=== PATIENT | male | born 1975 | race African-American/Black ===

== ENCOUNTER 2021-05-11 21:40 | Emergency (ER) | payer BC, OTHER ==
[2021-05-11] MEDS ORDERED: HYDROcodone/Acetaminophen 5/325 mg Tablet ONE (23:28)
== END 2021-05-12 00:04 | disposition home or self-care (01) ==
LOC: NAV ERS 21:40
DX: S39.012A Strain of muscle, fascia and tendon of lower back, initial encounter (principal); R51.9 Headache, unspecified; I10 Essential (primary) hypertension; Z79.899 Other long term (current) drug therapy; V49.9XXA Car occupant (driver) (passenger) injured in unspecified traffic accident, initial encounter
CPT/HCPCS: 72100